=== PATIENT | male | born 1960 | race Caucasian/White ===

== ENCOUNTER 2017-11-28 13:13 | Day surgery (SDC) | payer BC ==
[2017-11-28 13:51] VITALS: RESP 16
[2017-11-28] MEDS ORDERED: BUPIVACAINE/EPI 0.5% 10 ML SOL INFIL ONE ×2 (14:17→14:53)
[2017-11-28] MEDS ORDERED: KETOROLAC TROMETHAMINE 30 MG/ML SOL ONE (15:26)
[2017-11-28 17:25] VITALS: BP 148/88; PULSE 65; TEMP 97.3; O2SAT 97
== END 2017-11-28 17:15 | disposition home or self-care (01) ==
LOC: SURG 13:13
PROVIDERS: ATTEND Surgery
DX: K40.31 Unilateral inguinal hernia, with obstruction, without gangrene, recurrent (principal)
CPT/HCPCS: J0690; J1100; J1885; J2310; J2405; J3010; A6402; C1781; J2001; J2704

== ENCOUNTER 2018-05-06 07:19 | Day surgery (SDC) | payer BC ==
[2018-05-06] MEDS ORDERED: PROPOFOL 500 MG/50 ML EMU IV ONE (08:11)
[2018-05-06] MEDS ORDERED: LIDOCAINE HCL 1% MPF 30 SOL ONE (08:11)
[2018-05-06] MEDS ORDERED: FENTANYL 100MCG/2ML SOL ONE (08:13)
[2018-05-06] MEDS: BUPIVACAINE/EPI 0.5% 10 ML SOL INFIL ONE ×2 (08:28→09:06)
[2018-05-06] MEDS ORDERED: PROPOFOL 10 MG/ML EMU IV ONE (09:02)
[2018-05-06] MEDS ORDERED: CEFAZOLIN SODIUM 1 GM PDS ONE ×2 (09:02)
[2018-05-06] MEDS ORDERED: KETOROLAC TROMETHAMINE 30 MG/ML SOL ONE (09:38)
[2018-05-06] MEDS ORDERED: KETOROLAC TROMETHAMINE 30 MG/ML SOL IV ONE (09:41)
[2018-05-06 10:09] VITALS: BP 138/90; PULSE 58; RESP 20; TEMP 96.4; O2SAT 97
== END 2018-05-06 11:25 | disposition home or self-care (01) ==
LOC: SURG 07:19
PROVIDERS: ATTEND Surgery
DX: K40.91 Unilateral inguinal hernia, without obstruction or gangrene, recurrent (principal)
CPT/HCPCS: J0690; J1885; J3010; A6402; C1781; J2001; J2704

== ENCOUNTER 2018-10-16 18:19 | Emergency (ER) | payer BC ==
[2018-10-16] MEDS ORDERED: ONDANSETRON HCL 4 MG/2 ML SOL IV ONE (18:26)
[2018-10-16] MEDS ORDERED: SODIUM CHLORIDE 0.9% 1000ML 1,000 ML IV ONE (18:26)
[2018-10-16] MEDS ORDERED: MORPHINE SULFATE 10 MG/ML SOL IV ONE (18:26)
[2018-10-16 18:37] LABS: BASOPHILS % (AUTO) 1 % (0-3); EOSINOPHILS % (AUTO) 4 % (0-9); HEMATOCRIT 51 % (39-53); HEMOGLOBIN 16.6 gm/dl (13.5-17.7); LYMPHOCYTES % (AUTO) 45.8 % (10-50); MEAN CORPUSCULAR HGB CONC 32.3 gm/dl (32.0-36.0); MEAN CORPUSCULAR VOLUME 90 fL (80-100); MONOCYTES % (AUTO) 8.3 % (0-12); NEUTROPHILS % (AUTO) 41.4 % (37-80)
[2018-10-16] MEDS ORDERED: ONDANSETRON HCL 4 MG/2 ML SOL ONE (18:41)
[2018-10-16] MEDS ORDERED: MORPHINE SULFATE 10 MG/ML SOL ONE (18:41)
[2018-10-16 18:55] LABS: ALBUMIN 4.2 gm/dl (3.4-5.0); BILIRUBIN,TOTAL 0.5 mg/dl (0.2-1.0); CARBON DIOXIDE 28.6 mEq/L (21-32); CREATININE 1.08 mg/dl (0.80-1.30); POTASSIUM 3.7 mMol/L (3.5-5.1); TOTAL PROTEIN 7.6 gm/dl (6.4-8.2)
[2018-10-16 18:58] LABS: APPEARANCE,URINE Clear; BILIRUBIN,URINE NEGATIVE (NEGATIVE); COLOR,URINE Yellow; GLUCOSE, URINE (UA) NEGATIVE (NEGATIVE); KETONES,URINE NEGATIVE (NEGATIVE); LEUKOCYTE ESTERASE ,URINE NEGATIVE (NEGATIVE); NITRATE,URINE NEGATIVE (NEGATIVE); OCCULT BLOOD,URINE 3+ (NEG-TRACE); PH,URINE 5.5; UROBILINOGEN,URINE 0.2 (0.2-1.0 EU)
[2018-10-16 19:08] LABS: BACTERIA NEGATIVE (< 1+); CRYSTALS NEGATIVE (0-3 AVE/HPF); EPITHELIAL CELLS 0-3 (SQUAMOUS); RBC,URINE 15-20 (0-3AV/HPF); WBC,URINE 0-2 (0-5AV/HPF)
[2018-10-16] MEDS ORDERED: KETOROLAC TROMETHAMINE 30 MG/ML SOL IV ONE (20:17)
[2018-10-16] MEDS ORDERED: KETOROLAC TROMETHAMINE 30 MG/ML SOL ONE (20:17)
[2018-10-16 21:30] VITALS: BP 142/86; PULSE 71; RESP 18; TEMP 96.7; O2SAT 97
== END 2018-10-16 21:16 | disposition home or self-care (01) ==
LOC: ED 18:19
DX: N23 Unspecified renal colic (principal); R11.0 Nausea; R10.9 Unspecified abdominal pain
CPT/HCPCS: 36415; 74176; 80053; 81001; 85025; 96365; 96372; 96374; 96375; 99283; 99284; 99285; J1885; J2270; J2405; J1170

== ENCOUNTER 2018-10-16 22:56 | Emergency (ER) | payer BC ==
[2018-10-16 23:14] VITALS: TEMP 97.6
[2018-10-16] MEDS ORDERED: HYDROMORPHONE 1 MG/ML SYRINGE ONE (23:49)
[2018-10-16] MEDS ORDERED: HYDROMORPHONE 1 MG/ML SYRINGE IM ONE (23:49)
[2018-10-17 01:07] VITALS: BP 130/78; PULSE 75; RESP 16; O2SAT 96
== END 2018-10-17 01:03 | disposition home or self-care (01) ==
LOC: ED 22:56
DX: N23 Unspecified renal colic (principal)
CPT/HCPCS: 99283; J1170